=== PATIENT | male | born 1965 | race African-American/Black ===

== ENCOUNTER 2022-07-04 07:10 | Emergency (ER) | payer OTHER ==
[2022-07-04] MEDS ORDERED: Ketorolac Tromethamine 30 MG/ML VIAL ONE (08:21)
== END 2022-07-04 08:36 | disposition home or self-care (01) ==
LOC: CSHERS 07:10
DX: S43.401A Unspecified sprain of right shoulder joint, initial encounter (principal); W18.30XA Fall on same level, unspecified, initial encounter; F17.210 Nicotine dependence, cigarettes, uncomplicated
CPT/HCPCS: 96372; J1885

== ENCOUNTER 2022-12-22 03:49 | Emergency (ER) | payer MEDICAID, MEDICARE ==
[2022-12-22] MEDS ORDERED: Ketorolac Tromethamine 30 MG/ML VIAL ONE (05:14)
[2022-12-22] MEDS ORDERED: HYDROcodone/Acetaminophen 5/325 mg Tablet ONE (05:15)
== END 2022-12-22 05:32 | disposition home or self-care (01) ==
LOC: CSHERS 03:49
DX: M25.512 Pain in left shoulder (principal); F17.210 Nicotine dependence, cigarettes, uncomplicated
CPT/HCPCS: 96372; 99283; J1885